=== PATIENT | male | born 1960 | race Caucasian/White ===

== ENCOUNTER → 2018-04-05 | Outpatient (CLI) | payer OTHER ==
--- NOTE | 2018-04-11 13:44 | SLEEP ---
[address] [address] SLEEP STUDY REPORT Name: RAUL GIBSON Room: [facility]#: [id number] Admission: 04/05/18 Attend Phys: Emory Osuna MD Discharge: Date of : 60 Report #: [id number] THIS REPORT FOR: //name// CC: Sean Osuna MD [facility] This study has been reviewed in its entirety by a board certified sleep specialist DATE OF SERVICE: 04/06/2018 REFERRING PHYSICIAN: Emory Osuna MD [facility] The patient is 57 years old who weighs 315 pounds and is 5 feet 11 inches tall with an [place] score of 16. The patient underwent home sleep study performed at [facility]. A total recording time was 421 minutes. During the night study, the patient had 115 obstructive apneas, no mixed or central apneas and 263 hypopneas. The patient's apnea hypopnea index was 53.8 per hour. No supine sleep was observed. Nocturnal oximetry study revealed an average oxygen saturation of 91% with a lowest of 76%. 88 minutes were spent in oxygen saturation of less than 90%. Mean heart rate was 62 beats per minute. IMPRESSION: 1. Severe sleep apnea-hypopnea syndrome with an AHI of 53.8 per hour. 2. Nocturnal hypoxia secondary to obstructive sleep apnea. RECOMMENDATIONS: 1. The patient would benefit from in-lab CPAP titration study. 2. Once optimum CPAP pressure is achieved, then follow up in 4-6 weeks to assess compliance with CPAP and to document clinical improvement. 3. Weight loss is strongly advised. 4. Avoid DIESEL [employer]TER MECH[employer]IC depressants. 5. Caution regarding driving until symptoms of sleep apnea resolve with the use of CPAP. <ELECTRONICALLY SIGNED> By: Darin Dotson MD 04/11/18 1344 [id number] Dotson MD /nt
== END | disposition home or self-care (01) ==
LOC: M.SLEEPLAB 09:00
DX: G47.33 Obstructive sleep apnea (adult) (pediatric) (principal); G47.19 Other hypersomnia

== ENCOUNTER → 2018-05-15 | Outpatient (CLI) | payer OTHER ==
--- NOTE | 2018-05-16 18:49 | SLEEP ---
[address] [address] SLEEP STUDY REPORT Name: RAUL GIBSON Room: [facility]#: [id number] Admission: 05/15/18 Attend Phys: Emory Osuna MD Discharge: Date of : 60 Report #: [id number] THIS REPORT FOR: //name// CC: Sean [facility] Emory Osuna This study has been reviewed in its entirety by a board certified sleep specialist DATE OF SERVICE: 05/15/2018 LOCATION: [facility]. The patient is 57 years old who weighs 315 pounds and is 71 inches tall with a BMI of 43.9. The patient had a previous home sleep study and was found to have severe sleep apnea, had an AHI of 53 per hour. The patient returned for in-lab CPAP titration study. During the night of study, the patient spent 365 minutes in bed and slept for 288 minutes with a sleep efficiency of 79%. Sleep latency was 21 minutes with a REM latency of 120 minutes. Overall, sleep architecture showed normal stage I sleep, reduced stage II sleep, increased N3 sleep, which was 31% of the total sleep time and increased REM sleep, which was 36% of the total sleep time. EKG monitoring revealed an average heart rate of 60 beats per minute, no sustained arrhythmias were observed. PLMS were seen at an index of 25 per hour, but only 0.4 per hour caused EEG arousals. The patient was started on CPAP at 5 cm water and titrated up to 11 cm water. At the final pressure, the patient slept for 87 minutes. The patient had 34 minutes of REM sleep. No supine sleep was seen at the final pressure. The patient's AHI was reduced to only 0.7 per hour. However, at lower pressures when the patient had supine REM sleep, the patient's AHI was still less than 3 per hour. At the final pressure of 11 cm water, the patient's oxygen saturation remained above 90%. The patient tolerated the CPAP well. IMPRESSION: 1. Severe sleep apnea diagnosed by previous home sleep study. 2. [id number] periodic limb movements without any significant EEG arousals. This does not need to be treated. RECOMMENDATIONS: 1. CPAP at 11 cm water completely eliminated the [place] [address] SLEEP STUDY REPORT Name: RAUL GIBSON Room: [facility]#: [id number] Admission: 05/15/18 Attend Phys: Emory Osuna MD Discharge: Date of : 60 Report #: [id number] should be used on a nightly basis. 2. Follow up in 4-6 weeks to assess compliance with CPAP and to document clinical improvement. 3. Weight loss strongly advised. 4. 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 5. Cautioned regarding driving until symptoms of sleep apnea resolve with the use of CPAP. <ELECTRONICALLY SIGNED> By: Darin U. Dotson, MD 05/16/18 1849 [id number] Dotson MD /nt
== END ==
LOC: M.SLEEPLAB 04-30 21:00
DX: G47.30 Sleep apnea, unspecified (principal); G47.61 Periodic limb movement disorder